=== PATIENT | female | born 1975 | race Caucasian/White ===

== ENCOUNTER → 2017-07-24 | Outpatient (CLI) | payer BC ==
[~2017-07-24] VITALS: Ht 160 cm; Wt 68.0 kg
[~2017-07-24] MED LIST: AMBIEN 10 MG TA10 MG PO; CYCLAFEM1 EAC1 PO; HYDROCODON-ACE1 EAC8 PO; MIRALAX119 GM PO
--- NOTE | ~2017-07-24 | HPC ---
[facility] [address] [address] PAIN MANAGEMENT CONSULTATION Name: FRANCIS CARPENTER Room #: REG GILBERT Wanda#: [id number] Admission: 07/24/17 Attend Phys: Jayden Fountain DO Discharge: Date of : 77 Report #: [id number] THIS REPORT FOR: //name// CC: Blair MENDOZAKA FAUSTINO DATE OF SERVICE: 07/24/2017 REFERRING PHYSICIAN: Blair De La Paz MD CHIEF COMPLAINT: Low back pain, bilateral lower extremity pain with paresthesias. HISTORY OF PRESENT ILLNESS: As you know, the patient is a 42-year-old female who was referred to our clinic for low back pain, bilateral lower extremity pain with paresthesias. The patient apparently underwent surgery with Dr. De La Paz for spinal stenosis that began 03/29/2016. Even with the surgery, the patient continues to experience bilateral lower extremity pain, which she describes as continuous, steady and constant, burning, aching, crushing, numbness, tingling and sharp, places pain score at 7/10, daily average at 7/10, worst pain has been is 9/10. The patient states sitting and moving exacerbates symptoms, lying on her left side tends to improve pain. She has been trialed with medication therapy through her orthopedic spine surgeon, but is noticing no significant pain improvement with the current therapy. The patient was referred to our clinic to discuss options for treatment. We have been requested by the primary team to evaluate the patient specifically to determine if interventional treatments would be beneficial. PAST MEDICAL HISTORY: 1. Anemia. 2. Chronic lumbar radicular symptoms. 3. Insomnia. PAST SURGICAL HISTORY: 1. Tubal ligation. 2. Laminectomy with diskectomy. SOCIAL HISTORY: The patient denies tobacco, IV or illicit drug use, admits to 3 alcoholic beverages per week. She is a homemaker, she is not receiving workman's compensation nor is she trying to obtain disability benefits. She is not in litigation in regards to pain. She is unaccompanied today. REVIEW OF SYSTEMS: Positive for weight gain, decrease in appetite, fatigue and weakness, frequent and recurrent headaches, wearing corrective eyewear, earaches with drainage, chronic sinus problems with rhinitis, sore throat with voice [facility] [address] [place] [address] PAIN MANAGEMENT CONSULTATION Name: FRANCIS CARPENTER ASHAWAY Room #: REG GILBERT Muñoz#: [id number] Admission: 07/24/17 Attend Phys: Jayden Fountain DO Discharge: Date of : 77 Report #: [id number] changes, loss of appetite, painful bowel movements, constipation, abdominal pain, frequent urination, nocturia, change in force or stream of urination, incontinence and dribbling to urine, history of kidney stones, sexual difficulty, painful menses, irregular menses, vaginal discharge, numbness and tingling sensations in the lower extremities bilaterally, tremors, history of mild post-surgical paralysis, nervousness, insomnia, heat and cold intolerance, excessive thirst and urination. All other review of systems negative per 12-point review of systems other than those listed in history of present illness. PAIN IMPACT SCORE: 62/70 indicating near complete interference of daily activities secondary to pain. ALLERGIES: No known drug allergies. CURRENT MEDICATIONS: MiraLax 17 grams per day, hydrocodone 7.5/325 one tab every 4 hours p.r.n. for pain, Cyclofem 1 tab per day, and zolpidem 10 mg p.o. at bedtime. IMAGING: MRI lumbar spine obtained on 05/14/2017, shows L1-L2 unremarkable. L2-L3 unremarkable. L3-L4 unremarkable. L4-L5 disk desiccation, diffuse disk bulge, mild facet arthropathy, ligamentum flavum hypertrophy. L5-S1, post-surgical changes with noted muscular changes from surgery, interval decrease in size of peripherally enhanced subcutaneous fluid collection. PHYSICAL EXAMINATION: VITAL SIGNS: Blood pressure 112/85, pulse 110, respiratory rate 14 and unlabored, the patient is 100% on room air, height 5 feet 3 inches tall, weight 150 pounds, and BMI calculated 26.6. GENERAL: Well-developed, well-nourished, well-hydrated 42-year-old female, appearing her stated age, placing current pain score at approximately 7/10. HEENT: Normocephalic, atraumatic. Pupils are equal, round, and reactive to light. Extraocular muscles are intact. Sclerae nonicteric without injection. NEUROLOGIC: Cranial nerves 2-12 grossly intact. Speech is fluent. The patient deemed an excellent historian. LUNGS: Clear. No wheeze, rhonchi, or rales. CARDIOVASCULAR: Regular. No appreciable gallop or rub. ABDOMEN: Soft, nontender, nondistended, normal active bowel sounds. EXTREMITIES: Show no clubbing, no cyanosis, and no edema. MUSCULOSKELETAL: Lower extremity strength is reduced bilaterally, this is due to pain generation, there does not appear to be muscle atrophy present. Strength would be rated at 5/5. Gait is antalgic. The patient is slightly forward flexed to lumbar spine at stance. Seated straight leg raising mildly positive, supine straight leg raising positive. Italo's test is negative. Modified Gaenslen's positive for axial low back pain. Well-healed surgical scars. Ankle clonus negative. Babinski is negative. Deep tendon reflexes are [facility] [address] [place] [address] PAIN MANAGEMENT CONSULTATION Name: FRANCIS CARPENTER ASHAWAY Room #: REG [facility] Wanda#: [id number] Admission: 07/24/17 Attend Phys: Jayden Fountain DO Discharge: Date of : 77 Report #: [id number] diminished bilaterally. ASSESSMENT: 1. Chronic lumbar radiculopathy. 2. Peripheral neuropathy. 3. Caudae equina syndrome. 4. Chronic intractable pain. PLAN: 1. The patient has been referred to our clinic by her orthopedic spine surgeon for evaluation. The patient has undergone surgery to address caudae equina syndrome from a finding at the L5-S1 level. The patient underwent emergent surgery, but unfortunately symptoms of lower extremity pain and paresthesias have not resolved. There is some discussion that the patient may have suffered nerve damage to the point where she may not be able to return to typical activities of daily living without a long period of recovery. I have reviewed the MRI of the patient's lumbar region, it does show some serosanguineous fluid, this likely post-surgical in origin at the L5-S1 level, there are postsurgical changes there, but it does not appear that any acute compression is presently occurring. Options for treatment are fairly limited in this case as the symptoms that she is experiencing are neuropathic in origin and addressing these symptoms will be provided only in very specific treatment options, epidural injections will be of little or no benefit in this patient's case as there is no specific edema within the epidural area or the nerve roots that may be involved. The symptoms appear to be more centralized in nature, not affecting more peripheral neuropathy, but more of a presentation of ongoing caudae equina type symptoms secondary to central cord damage. We have discussed with the patient the options that we have available for neuropathic pain, now that the decompression has been completed, treatment options are as follows. 2. Physical therapy, stretching exercise, core strengthening can be utilized to decrease the patient's symptomology, this would provide more strength in the lower extremities, maintain muscle bulk and also provide signaling pathways through alternative roots that have a tendency to reduce the patient's pain and paresthesias. This is certainly an option in the patient's case, we discussed neuropathic pain medication in the form of gabapentin, Lyrica, nortriptyline, amitriptyline and Cymbalta, all of which could be beneficial for pain control. We also discussed spinal cord stimulator technology as this would be the most effective treatment option for the generalized pain she is experiencing, surgical options at this point I do not feel will be beneficial as there is nothing specific in the lumbar region based on new MRI that would be possible to work on that would improve symptoms. After a very long discussion with the patient today, the following changes were made in her therapy. 3. The patient will be started on Gralise, she apparently has had gabapentin in the past, but failed due to side effects of somnolence, decrease in mental acuity, disorientation and confusion during the daytime hours. We will start the patient on Gralise as this will provide the patient analgesic control from a [address] [address] PAIN MANAGEMENT CONSULTATION Name: FRANCIS CARPENTER Room #: REG [facility] Wanda#: [id number] Admission: 07/24/17 Attend Phys: Jayden Fountain DO Discharge: Date of : 77 Report #: [id number] neuropathic standpoint being taken once in the evening hours, this will reduce the side effects that she may experience and will provide the patient with some potential improvement in symptoms. We will watch for any side effects of somnolence, decrease mental acuity, disorientation and confusion while she starts this medication, she was given samples of the therapy, she will begin at 300 mg dose and titrate as directed. Once she reaches an efficacious level, stabilize at that dose. 4. The patient was given information about spinal cord stimulator technology specifically the Nevro device. She was also given the names of psychiatrist that she would need to see for initial testing. If she is able to pass the psychiatric evaluation, we would then move forward with possible trial implantation. If implantation trial is successful, then the patient will follow up with her orthopedic spine surgeon for permanent implant of the device. We at [facility] do not provide permanent implants of spinal cord stimulators, these are done by our surgery teams. If the patient does move forward with a spinal cord stimulator, we will be providing information back to Dr. De La Paz about efficacy and whether or not she finds benefit with its use. 5. We will see the patient back in followup visit in approximately 2 weeks. At that time, the patient will have titrated as directed by the Gralise sample pack. If she has any side effects, she is to contact our clinic by phone prior to that 2-week visit. We are hopeful at that time the patient will also have had a chance to see psychiatry and undergone psychiatric evaluation to determine if her symptoms and her medical history and psychological history is such that she could undergo a trial implantation. We will review this at followup visit hopefully in 2 weeks. 6. We wish to thank the referring team for the opportunity to see this patient in consultation. We will keep you apprised of her response to treatment as we address her ongoing radicular symptoms secondary to caudae equina syndrome. Again, we wish to thank you for the opportunity to see the patient in consultation. By: [id number] Jayden Fountain DO /nt
[2017-07-24 08:41] VITALS: BP 112/85
== END ==
LOC: PAIN 06:28
DX: M54.16 Radiculopathy, lumbar region (principal); G62.9 Polyneuropathy, unspecified